=== PATIENT | male | born 1985 | race Two or more races ===

== ENCOUNTER 2021-11-07 00:05 | Emergency (ER) | payer SELFPAY ==
[~2021-11-07] VITALS: Ht 167.6 cm; Wt 63.6 kg
[2021-11-07 02:30] LABS: Albumin 4.2 g/dL (3.4-5.0); BUN/Creatinine Ratio 40.5; Calcium 9.2 mg/dL (8.5-10.1); Potassium 3.3 mmol/L (3.5-5.1)
[2021-11-07 02:31] LABS: Basophils # (auto) 0 10 ^3/uL (0-0.2); Basophils % (auto) 0.7 % (0.0-2.0); Eosinophils # (auto) 0.2 10 ^3/uL (0-0.8); Eosinophils % (auto) 3.6 % (0.0-7.0); Hematocrit 44.3 % (41.0-53.0); Lymphocytes # (auto) 1.9 10 ^3/uL (0.4-5.4); Lymphocytes % (auto) 42.2 % (10.0-50.0); Mean Corpuscular Hemoglobin 28.3 pg (28.0-32.0); Mean Corpuscular Hgb Conc. 33.8 g/dL (32.0-36.0); Mean Corpuscular Volume 83.5 fL (80.0-100.0); Monocytes # (auto) 0.4 10 ^3/uL (0-1.3); Neutrophils % (auto) 45.5 % (37.0-80.0); Nucleated Red Blood Cells % 0.1 %; Red Cell Distribution Width 13.3 % (11.8-14.3); White Blood Cell 4.5 10^3/uL (4.4-10.8)
[2021-11-07 02:33] LABS: Total Protein 7.4 g/dL (6.4-8.2)
[2021-11-07 04:27] VITALS: BP 127/75
== END 2021-11-07 07:56 | disposition home or self-care (01) ==
LOC: ER 00:05
DX: S90.112A Contusion of left great toe without damage to nail, initial encounter (principal); X58.XXXA Exposure to other specified factors, initial encounter; Y93.89 Activity, other specified; Y92.89 Other specified places as the place of occurrence of the external cause; Y99.8 Other external cause status
CPT/HCPCS: 36415; 73700; 80053; 83605; 85025; 87040; 93926